=== PATIENT | female | born 1945 | race Caucasian/White ===

== ENCOUNTER 2023-04-25 05:40 | Day surgery (SDC) | payer OTHER, MEDICARE ==
[2023-04-20 12:05] LABS: BASOPHILS # (AUTO) 0.1 K/uL (0.0-0.2); BASOPHILS % (AUTO) 0.9 % (0.0-2.0); EOSINOPHILS # (AUTO) 0.2 K/uL (0.0-0.4); EOSINOPHILS % (AUTO) 1.3 % (0.0-4.0); HEMATOCRIT 46.8 % (36-48); HEMOGLOBIN 14.8 g/dL (12.0-16.0); LYMPHOCYTES # (AUTO) 2.3 K/uL (1.0-5.5); LYMPHOCYTES % (AUTO) 19.1 % (20.5-51.5); MEAN CORPUSCULAR HEMOGLOBIN 26 pg (27-31); MEAN CORPUSCULAR HGB CONC 32 % (32-36); MEAN CORPUSCULAR VOLUME 82 fL (79.0-98.0); MONOCYTES % (AUTO) 8.7 % (1.7-9.3); NEUTROPHILS # (AUTO) 8.3 K/uL (1.8-7.7); PLATELET COUNT (AUTO) 250 K/uL (130-430); RED BLOOD CELL COUNT(AUTO) 5.68 MIL/uL (4.2-6.2); RED CELL DISTRIBUTION WIDTH 16.7 % (9.0-15.0); WHITE BLOOD COUNT (AUTO) 11.9 K/uL (4.8-10.8)
[2023-04-20 12:10] LABS: BILIRUBIN,URINE NEGATIVE (NEGATIVE); BLOOD, URINE 1+ (NEGATIVE); CLARITY/URINE CLEAR (CLEAR); COLOR,URINE YELLOW (YELLOW); GLUCOSE,URINE NEGATIVE (NEGATIVE); KETONES,URINE NEGATIVE (NEGATIVE); LEUKOCYTE ESTERASE ,URINE NEGATIVE (NEGATIVE); NITRITE, URINE NEGATIVE (NEGATIVE); PH,URINE 5.5 (5.0-8.0); PROTEIN URINE NEGATIVE (NEGATIVE); UROBILINOGEN,URINE 0.2 (0.2-1.0)
[2023-04-20 12:15] LABS: BACTERIA,URINE FEW /HPF (None Seen); MUCUS,URINE 1+ /LPF (None Seen)
[2023-04-20 12:31] LABS: ALANINE AMINOTRANSFERASE 15 U/L (12-78); ALBUMIN 3.3 g/dL (3.4-4.8); ANION GAP 7 (5-15); ASPARTATE AMINOTRANSFERASE 12 U/L (10-37); CALCIUM 8.7 mg/dL (8.4-11.0); CHLORIDE 103 mmol/L (98-107); CREATININE 0.83 mg/dL (0.55-1.30); GLUCOSE 118 mg/dL (74-106); TOTAL BILIRUBIN 0.4 mg/dL (0.0-1.0); UREA NITROGEN, BLOOD 18 mg/dL (8-21)
[2023-04-20 12:33] LABS: PROTHROMBIN TIME 9.9 SECS (9.5-12.5)
[~2023-04-25] VITALS: Ht 154.9 cm; Wt 92.7 kg
[2023-04-25 07:13] VITALS: O2SAT 98
[2023-04-25] MEDS ORDERED: METOCLOPRAMIDE HCL 10 MG/2 ML VIAL ONE (07:38)
[2023-04-25] MEDS ORDERED: GLYCOPYRROLATE 0.2 MG/ML VIAL ONE (07:38)
[2023-04-25] MEDS ORDERED: fentaNYL CITRATE/PF 100 MCG/2 ML AMP ONE (07:38)
[2023-04-25] MEDS ORDERED: PROPOFOL 200MG/ 20ML VIAL (DIPRIVAN) IV ONE (07:38)
[2023-04-25] MEDS ORDERED: ePHEDrine sulfate 50 MG/ML VIAL ONE (07:38)
[2023-04-25] MEDS ORDERED: KETOROLAC TROMETHAMINE 30 MG VIAL ONE (07:38)
[2023-04-25] MEDS ORDERED: NS 1000 ML IV.SOLN IV ONE (07:38)
[2023-04-25] MEDS ORDERED: LR 1,000 ML IV.SOLN IV ONE (07:38)
[2023-04-25] MEDS ORDERED: DEXAMETHASONE SOD PHOSPHATE 4 MG/ML VIAL ONE (07:38)
[2023-04-25] MEDS ORDERED: SUGAMMADEX SODIUM 200 MG/2 ML VIAL IV ONE (07:38)
[2023-04-25] MEDS ORDERED: SEVOFLURANE 15 MIN GAS INH ONE (07:38)
[2023-04-25] MEDS ORDERED: ONDANSETRON HCL 4 MG/2 ML VIAL ONE (07:38)
[2023-04-25] MEDS ORDERED: LR 1,000 ML IV SCH (08:15)
[2023-04-25] MEDS ORDERED: hydrALAZINE HCL 20 MG/ML VIAL IVP PRN (08:15)
[2023-04-25] MEDS ORDERED: MEPERIDINE HCL/PF 25 MG/ML DISP.SYRIN IVP PRN (08:15)
[2023-04-25] MEDS ORDERED: NALOXONE HCL 0.4 MG/ML AMP (NARCAN) IVP PRN (08:15)
[2023-04-25] MEDS ORDERED: HYDROmorphone 1 MG/ML INJ. CARTRIDGE IVP PRN ×2 (08:15)
[2023-04-25] MEDS ORDERED: ONDANSETRON HCL 4 MG/2 ML VIAL IVP PRN ×2 (08:15→09:00)
[2023-04-25] MEDS ORDERED: KETOROLAC TROMETHAMINE 30 MG VIAL IVP PRN (08:15)
[2023-04-25] MEDS ORDERED: IBUPROFEN 800 MG TABLET PO PRN (09:00)
[2023-04-25 10:33] VITALS: BP_SYST 168; PULSE 60; RESP 20
== END 2023-04-25 10:33 | disposition home or self-care (01) ==
LOC: SDS 05:40 → SMU 05:40 → SDS 10:33
PROVIDERS: ATTEND Obstetrics & Gynecology Gynecology
DX: N95.0 Postmenopausal bleeding (principal); R93.89 Abnormal findings on diagnostic imaging of other specified body structures; D25.0 Submucous leiomyoma of uterus; I10 Essential (primary) hypertension; M79.7 Fibromyalgia; E03.9 Hypothyroidism, unspecified; M19.90 Unspecified osteoarthritis, unspecified site; Z85.3 Personal history of malignant neoplasm of breast; Z79.899 Other long term (current) drug therapy
CPT/HCPCS: 80053; 81000; 85025; 85610; 85730; 86886 ×2; 86900 ×2; 86901 ×2; 87081; 87086; 36415 ×2; 93005; 71046; 58558; 88305; J3490 ×2; J1100; J1885; J2765; J2405; J2704; J3010; J7120; J7030; C1819